=== PATIENT | female | born 1950 | race Caucasian/White ===

== ENCOUNTER 2018-04-30 19:44 | Inpatient (IN) | payer BC, OTHER ==
[2018-04-30] MEDS ORDERED: IBUPROFEN 400 MG TAB ONE (20:55)
[2018-04-30] MEDS ORDERED: IBUPROFEN 200 MG TAB PO ONE (20:56)
[2018-04-30] MEDS ORDERED: NA CHLORIDE 0.9% 500 ML ONE (20:56)
--- NOTE | 2018-04-30 21:16 | RAD REPORT ---
EXAM DESCRIPTION: CT - Stone Protocol - 04/30/2018 8:54 pm CLINICAL HISTORY: Abdominal pain. Urinary tract infection COMPARISON: None. TECHNIQUE: Computed axial tomography of the abdomen pelvis was obtained without oral or IV contrast. Lack of IV and oral contrast limits evaluation of solid organs, bowel, and vessels. Coronal reformat erasto images were obtained and reviewed. All CT scans are performed using dose optimization technique as appropriate and may include automated exposure control or mA/KV adjustment according to patient size. FINDINGS: A renal calculus is not seen. An ureteral calculus is not noted. A bladder calculus is not present. Left perirenal and left periureteral stranding is present The liver, spleen, pancreas and adrenals appear grossly normal There is no evidence of diverticulitis. The appendix appears normal Spondylolysis involves L5 IMPRESSION: Negative for a genitourinary calculus Left perirenal and left periureteral stranding likely indicating inflammation/infection
[2018-04-30 21:38] LABS: Absolute Lymphocytes (CBC) 0.8 K/uL (0.7-4.9); Absolute Monocytes 1.3 K/uL (0.1-1.3); Absolute Neutrophil 9.8 K/uL (1.8-8.0); Basophils % 0.4 % (0-1.3); Eosinophils % 0.1 % (0-4.4); Lymphocytes % 6.8 % (15.3-44.8); MPV 7.6 fL (7.6-11.3); Monocytes % 10.8 % (3.3-12.3); RBC Red Blood Cell Count 3.99 M/uL (3.86-4.86)
[2018-04-30 21:44] LABS: Albumin 3.2 g/dL (3.4-5.0); Bilirubin Direct 0.1 mg/dL (0-0.2); Bilirubin Total 0.4 mg/dL (0.2-1.0); Potassium 3.3 mmol/L (3.5-5.1); Protein, Total 7.1 g/dL (6.4-8.2)
[2018-04-30] MEDS ORDERED: CEFTRIAXONE 1000 MG/VIAL ONE (21:46)
[2018-04-30] MEDS ORDERED: NA CHLORIDE 0.9% 50 ML IV ONE (21:46)
--- NOTE | 2018-04-30 21:57 | ER ---
Nurse's Notes [facility] Name: Genoveva Lomeli Age: 67 yrs Sex: Female : 1950 Arrival Date: 04/30/2018 Time: 19:45 Bed 24 Private MD: Darwin Zaragoza C Diagnosis: Acute pyelonephritis Presentation: 04/30 20:31 Presenting complaint: Patient states: she was diagnosed with a UTI on Saturday and aa1 started running a high fever today so she was told by Dr. Zaragoza that she needed to come to the ED for eval for possible admission. Was started on Bactrim on Saturday and began taking Cipro today. Transition of care: patient was not received from another setting of care. Onset of symptoms was April 26, 2018. Risk Assessment: Do you want to hurt yourself or someone else? Patient reports no desire to harm self or others. Initial Sepsis Screen: Does the patient meet any 2 criteria? HR > 90 bpm. Does the patient have a suspected source of infection? Yes: Dysuria/Frequency/Urgency/UTI. Care prior to arrival: None. 20:31 Method Of Arrival: Ambulatory aa1 20:31 Acuity: CHARLINE 3 aa1 Triage Assessment: 20:35 General: Appears in no apparent distress. comfortable, Behavior is calm, cooperative, aa1 appropriate for age. 20:41 Pain: Complains of pain in on urination. cc3 Historical: - Allergies: 20:35 Tape; aa1 - Home Meds: 20:35 Bactrim DS Oral [Active]; Cipro Oral [Active]; Synthroid Oral [Active]; Amitriptyline aa1 Oral [Active]; Ambien Oral [Active]; Vagifem vaginal vaginal [Active]; - PMHx: 20:35 Hypothyroidism; aa1 - PSHx: 20:35 Hernia repair; Hysterectomy; Bladder suspension; aa1 - Immunization history:: Flu vaccine is not up to date. - Social history:: Smoking status: Patient/guardian denies using tobacco. - Ebola Screening: : Patient denies exposure to infectious person Patient denies travel to an Ebola-affected area in the 21 days before illness onset. - Family history:: not pertinent. - Hospitalizations: : No recent hospitalization is reported. Screenin:41 Abuse screen: Denies threats or abuse. Denies injuries from another. Nutritional cc3 screening: No deficits noted. Tuberculosis screening: No symptoms or risk factors identified. Fall Risk Ambulatory Aid- None/Bed Rest/Nurse Assist (0 pts). Gait- Normal/Bed Rest/Wheelchair (0 pts) Mental Status- Oriented to own ability (0 pts). Assessment: 20:41 General: Appears in no apparent distress. comfortable, Behavior is calm, cooperative, cc3 appropriate for age. Pain: Complains of pain in on urination. Neuro: Level of Consciousness is awake, alert, obeys commands, Oriented to person, place, time, situation, Appropriate for age. Cardiovascular: Denies chest pain. Respiratory: Airway is patent Respiratory effort is even, unlabored, Respiratory pattern is regular, symmetrical. GI: Abdomen is round non-distended. : Reports urinary frequency. EENT: No signs and/or symptoms were reported regarding the EENT system. Derm: No signs and/or symptoms reported regarding the dermatologic system. Musculoskeletal: Circulation, motion, and sensation intact. Range of motion: intact in all extremities. 21:20 Reassessment: Patient appears in no apparent distress at this time. Patient and/or cc3 family updated on plan of care and expected duration. Pain level reassessed. Patient is alert, oriented x 3, equal unlabored respirations, skin warm/dry/pink. 22:50 Reassessment: Patient appears in no apparent distress at this time. Patient and/or cc3 family updated on plan of care and expected duration. Pain level reassessed. Patient is alert, oriented x 3, equal unlabored respirations, skin warm/dry/pink. Patient for admission, room available at 412, report called and handed over to JULIANA Harris for continuity of care. 23:15 Reassessment: Patient appears in no apparent distress at this time. Patient and/or cc3 family updated on plan of care and expected duration. Pain level reassessed. Patient is alert, oriented x 3, equal unlabored respirations, skin warm/dry/pink. Patient left ER for admission vitally stable by wheelchair escorted by calibration laboratory technicianrosa Soria. Vital Signs: 20:35 BP 145 / 78; Pulse 105; Resp 18; Temp 100.7; Pulse Ox 99% on R/A; Weight 73.48 kg; aa1 Height 5 ft. 8 in. (172.72 cm); Pain 0/10; 21:30 BP 143 / 83; Pulse 82; Resp 17 S; Pulse Ox 96% on R/A; cc3 22:50 BP 140 / 75; Pulse 80; Resp 18 S; Temp 98(O); Pulse Ox 96% on R/A; cc3 23:05 BP 127 / 77; Pulse 72; Resp 17 S; Pulse Ox 95% on R/A; cc3 20:35 Body Mass Index 24.63 (73.48 kg, 172.72 cm) aa1 ED Course: 19:45 Patient arrived in ED. es 19:46 Darwin Zaragoza MD is Private Physician. es 20:32 Triage completed. aa1 20:35 Arm band placed on right wrist. Patient placed in an exam room, on a stretcher. aa1 20:38 Haile Luciano MD is Attending Physician. rn 20:41 Soo Ace is Primary Nurse. cc3 20:41 Patient has correct armband on for positive identification. Placed in gown. Bed in low cc3 position. Call light in reach. Side rails up X 1. bus monitor on. Pulse ox on. NIBP on. 20:41 No provider procedures requiring assistance completed. Patient admitted, IV remains in cc3 place. 20:[address] via wheelchair. sj 20:54 CT completed. Patient tolerated procedure well. Patient moved back from CT. nj 20:55 CT Stone Protocol In Process Unspecified. EDMS 20:57 Urine collected: clean catch specimen, clear. lt1 21:10 Inserted saline lock: 20 gauge in left antecubital area, using aseptic technique. Blood cc3 collected. inserted by calibration laboratory technician Estella. 21:13 First set of blood cultures drawn by me. lt1 21:44 Second set of blood cultures drawn by me. lt1 21:57 Darwin Zaragoza MD is Hospitalizing Provider. rn Administered Medications: 20:45 Drug: Motrin 600 mg Route: PO; cc3 21:00 Follow up: Response: No adverse reaction cc3 21:10 Drug: NS 0.9% 500 ml Route: IV; Rate: bolus; Site: left antecubital; cc3 21:35 Follow up: Response: No adverse reaction; IV Status: Completed infusion; IV Intake: cc3 500ml 21:40 Drug: Rocephin - (cefTRIAXone) 1 grams Route: IVPB; Infused Over: 30 mins; Site: left cc3 antecubital; 22:15 Follow up: Response: No adverse reaction; IV Status: Completed infusion; IV Intake: [id number] Intake: 21:35 IV: 500ml; Total: 500ml. cc3 22:15 IV: 50ml; Total: 550ml. cc3 Outcome: 21:57 Decision to Hospitalize by Provider. rn 22:50 Admitted to Tele accompanied by tech, via wheelchair, room 412, with chart, Report cc3 called to JULIANA Harris 22:50 Condition: stable 22:50 Instructed on the need for admit, Demonstrated understanding of instructions. 23:20 Patient left the ED. cc3 Signatures: Dispatcher [employer] Awa Garzon RN RN aa1 James, Brie Leon, Haile Esparza MD MD rn Jordan, Nathan nj Cordel, Charlene cc3 Estella Dunlap [facility]
--- NOTE | 2018-04-30 21:58 | EDPHYS ---
Physician Documentation [facility] Name: Genoveva Lomeli Age: 67 yrs Sex: Female : 1950 Arrival Date: 04/30/2018 Time: 19:45 Bed 24 Private MD: Darwin Zaragoza C ED Physician Haile Luciano HPI: 04/30 21:05 This 67 yrs old Female presents to ER via Ambulatory with complaints of rn Urinary Problem. 21:05 The patient presents with urinary symptoms, dysuria, frequency. rn 21:05 Onset: The symptoms/episode began/occurred 3 day(s) ago. Modifying factors: The rn symptoms are alleviated by nothing, the symptoms are aggravated by nothing. Associated signs and symptoms: Pertinent positives: dysuria, fever, Pertinent negatives: hematuria. Severity of symptoms: At their worst the symptoms were mild, in the emergency department the symptoms are unchanged. The patient has not experienced similar symptoms in the past. The patient has been recently seen by a physician:. REports diagnosed with UTI recently, was on bactrim, now on cipro, still having fever and urinary symptoms. . Historical: - Allergies: 20:35 Tape; aa1 - Home Meds: 20:35 Bactrim DS Oral [Active]; Cipro Oral [Active]; Synthroid Oral [Active]; Amitriptyline aa1 Oral [Active]; Ambien Oral [Active]; Vagifem vaginal vaginal [Active]; - PMHx: 20:35 Hypothyroidism; aa1 - PSHx: 20:35 Hernia repair; Hysterectomy; Bladder suspension; aa1 - Immunization history:: Flu vaccine is not up to date. - Social history:: Smoking status: Patient/guardian denies using tobacco. - Ebola Screening: : Patient denies exposure to infectious person Patient denies travel to an Ebola-affected area in the 21 days before illness onset. - Family history:: not pertinent. - Hospitalizations: : No recent hospitalization is reported. ROS: 21:05 Constitutional: + fever Eyes: Negative for injury, pain, redness, and discharge, ENT: rn Negative for injury, pain, and discharge, Neck: Negative for injury, pain, and swelling, Cardiovascular: Negative for chest pain, palpitations, and edema, Respiratory: Negative for shortness of breath, cough, wheezing, and pleuritic chest pain, Abdomen/GI: Negative for nausea, vomiting, diarrhea, and constipation, MS/Extremity: Negative for injury and deformity, Skin: Negative for injury, rash, and discoloration, Neuro: Negative for headache, numbness, tingling, and seizure. Exam: 21:05 Constitutional: This is a well developed, well nourished patient who is awake, alert, rn and in no acute distress. Head/Face: Normocephalic, atraumatic. Eyes: Pupils equal round and reactive to light, extra-ocular motions intact. Lids and lashes normal. Conjunctiva and sclera are non-icteric and not injected. Cornea within normal limits. Periorbital areas with no swelling, redness, or edema. ENT: MMM Abdomen/GI: soft, non-tender Back: No spinal tenderness. No costovertebral tenderness. Full range of motion. Skin: Warm, dry with normal turgor. Normal color with no rashes, no lesions, and no evidence of cellulitis. MS/ Extremity: Pulses equal, no cyanosis. Neurovascular intact. Full, normal range of motion. Equal circumference. Neuro: Awake and alert, GCS 15, oriented to person, place, time, and situation. Cranial nerves II-XII grossly intact. Motor strength 5/5 in all extremities. Sensory grossly intact. Vital Signs: 20:35 BP 145 / 78; Pulse 105; Resp 18; Temp 100.7; Pulse Ox 99% on R/A; Weight 73.48 kg; aa1 Height 5 ft. 8 in. (172.72 cm); Pain 0/10; 21:30 BP 143 / 83; Pulse 82; Resp 17 S; Pulse Ox 96% on R/A; cc3 22:50 BP 140 / 75; Pulse 80; Resp 18 S; Temp 98(O); Pulse Ox 96% on R/A; cc3 23:05 BP 127 / 77; Pulse 72; Resp 17 S; Pulse Ox 95% on R/A; cc3 20:35 Body Mass Index 24.63 (73.48 kg, 172.72 cm) aa1 MDM: 20:38 Patient medically screened. rn 21:56 Differential diagnosis: urinary tract infection. Data reviewed: vital signs, nurses rn notes, lab test result(s), radiologic studies, CT scan, and as a result, I will admit patient. Counseling: I had a detailed discussion with the patient and/or guardian regarding: the historical points, exam findings, and any diagnostic results supporting the discharge/admit diagnosis, lab results, radiology results, the need for further work-up and treatment in the hospital. Response to treatment: the patient's symptoms have mildly improved after treatment, and as a result, I will admit patient. Admission orders: after a detailed discussion of the patient's condition and case, the admit orders are written by me. 04/30 20:39 Order name: Basic Metabolic Panel; Complete Time: 21:57 rn 04/30 20:39 Order name: CBC with Diff; Complete Time: :57 rn 04/30 20:39 Order name: Hepatic Function; Complete Time: :57 rn 04/30 20:39 Order name: Lipase; Complete Time: :57 rn 04/30 20:39 Order name: Urine Culture rn 04/30 20:39 Order name: Procalcitonin; Complete Time: 22:21 rn 04/30 20:39 Order name: IV Saline Lock; Complete Time: 21:17 rn 04/30 20:39 Order name: Labs collected and sent; Complete Time: 21:17 rn 04/30 20:39 Order name: CT Stone Protocol; Complete Time: 21:28 rn 04/30 20:39 Order name: Blood Culture Adult (2) rn 04/30 20:57 Order name: Urine Dipstick--Ancillary (enter results); Complete Time: 22:21 ct 04/30 20:39 Order name: Urine Dipstick-Ancillary (obtain specimen); Complete Time: 21:17 rn Administered Medications: 20:45 Drug: Motrin 600 mg Route: PO; cc3 21:00 Follow up: Response: No adverse reaction cc3 21:10 Drug: NS 0.9% 500 ml Route: IV; Rate: bolus; Site: left antecubital; cc3 21:35 Follow up: Response: No adverse reaction; IV Status: Completed infusion; IV Intake: cc3 500ml 21:40 Drug: Rocephin - (cefTRIAXone) 1 grams Route: IVPB; Infused Over: 30 mins; Site: left cc3 antecubital; 22:15 Follow up: Response: No adverse reaction; IV Status: Completed infusion; IV Intake: [id number] Disposition: 04/30/18 21:57 Hospitalization ordered by Zaragoza, A for Inpatient Admission. Preliminary diagnosis is Acute pyelonephritis. - Bed requested for Telemetry/MedSurg (Inpatient). - Status is Inpatient Admission. cc3 - Condition is Stable. - Problem is new. - Symptoms have improved. UTI on Admission? Yes Signatures: Dispatcher [employer] EDMS Awa Ohara RN RN aa1 Haile Luciano MD MD rn Garcia, Cindy, RN RN cg Cordel, Charlene cc3 Corrections: (The following items were deleted from the chart) 22:28 21:57 Hospitalization Ordered by A Nik RINCON for Inpatient Admission. Preliminary cg diagnosis is Acute pyelonephritis. Bed requested for Telemetry/MedSurg (Inpatient). Status is Inpatient Admission. Condition is Stable. Problem is new. Symptoms have improved. UTI on Admission? Yes. rn 23:20 22:28 04/30/2018 21:57 Hospitalization Ordered by A Nik RINCON for Inpatient Admission. cc3 Preliminary diagnosis is Acute pyelonephritis. Bed requested for Telemetry/MedSurg (Inpatient). Status is Inpatient Admission. Condition is Stable. Problem is new. Symptoms have improved. UTI on Admission? Yes. sara
[2018-04-30 22:19] LABS: Urine Blood TRACE (NEG); Urine Glucose NEGATIVE (NEG); Urine Protein NEGATIVE (NEG); Urine Specific Gravity <1.005 (1.005-1.030); Urine pH 5.5 (5.0-7.0)
[2018-05-01] MEDS: NA CHLORIDE 0.9% 1,000 ML IV SCH ×4 (00:59→21:12)
[2018-05-01] MEDS ORDERED: NA CHLORIDE 0.9% 1,000 ML ONE (01:13)
[2018-05-01 02:09] VITALS: BMI 24.6
[2018-05-01 04:45] LABS: Absolute Monocytes 1.2 K/uL (0.1-1.3); Basophils % 0.2 % (0-1.3); Eosinophils % 0.5 % (0-4.4); Hematocrit 34.9 % (36.0-45.0); MPV 7.5 fL (7.6-11.3); Monocytes % 9.5 % (3.3-12.3); RBC Red Blood Cell Count 3.99 M/uL (3.86-4.86)
[2018-05-01 04:59] LABS: Potassium 3.3 mmol/L (3.5-5.1)
[2018-05-01] MEDS ORDERED: PNEUMOCOCCAL VACCINE 0.5 ML IMVAC ONE (09:00)
[2018-05-01] MEDS ORDERED: CEFTRIAXONE/SWI 1gm 1 GM/10 ML SYR IV SCH (09:00)
[2018-05-01] MEDS ORDERED: CEFTRIAXONE 1 GM/NS 50 ML 1 GM/50 ML BAG IV SCH ×2 (09:00)
[2018-05-01] MEDS: POTASSIUM CL SA 10 MEQ TAB PO SCH ×2 (10:41→21:12)
[2018-05-01] MEDS: ENOXAPARIN 40 MG/0.4 ML SQ SCH (10:42)
--- NOTE | 2018-05-01 10:50 | RAD REPORT ---
EXAM DESCRIPTION: RAD - Chest Pa And Lat (2 Views) - 05/01/2018 10:31 am CLINICAL HISTORY: Fever COMPARISON: None. TECHNIQUE: PA and lateral views of the chest were obtained. FINDINGS: The lungs are normal volume. No focal consolidation, mass or failure finding. Minimal prom inence of the lung markings noted suspected to be baseline rather than early edema or infiltrate. H eart size is normal and central vasculature is within normal limits. No pleural effusion or pneumoth orax seen. No acute bony finding noted. No aortic abnormality. IMPRESSION: No acute cardiopulmonary process. Mild prominence of the interstitial markings are probably baseline for the patient rather than edema or infiltrate.
[2018-05-01] MEDS ORDERED: CIPROFLOXACIN 400mg IV 400 MG/200 ML BAG IV SCH (15:00)
[2018-05-01] MEDS ORDERED: CEFTAZIDIME 1 GM VIAL IV SCH (15:00)
[2018-05-01] MEDS: ACETAMINOPHEN 500 MG TAB PO PRN ×2 (16:04→22:03)
[2018-05-01] MEDS: CEFTAZIDIME 1 GM in NA CHLORIDE 0.9% 50 ML IV SCH (16:07)
[2018-05-01] MEDS: AMITRIPTYLINE 25 MG TAB PO SCH (21:12)
[2018-05-01] MEDS: ZOLPIDEM TARTRATE 10 MG TABLET PO SCH (23:11)
[2018-05-02] MEDS: CEFTAZIDIME 1 GM in NA CHLORIDE 0.9% 50 ML IV SCH ×3 (00:39→16:43)
[2018-05-02] MEDS: NA CHLORIDE 0.9% 1,000 ML IV SCH ×2 (05:15→10:00)
[2018-05-02] MEDS: ACETAMINOPHEN 500 MG TAB PO PRN ×3 (05:16→20:45)
[2018-05-02] MEDS: CIPROFLOXACIN 400mg IV 400 MG/200 ML BAG IV SCH ×2 (05:16→17:47)
[2018-05-02] MEDS: LEVOTHYROXINE SOD 0.112 MG TAB PO SCH (05:16)
[2018-05-02 06:20] LABS: Absolute Lymphocytes (CBC) 0.9 K/uL (0.7-4.9); Absolute Neutrophil 8.1 K/uL (1.8-8.0); Basophils % 0.5 % (0-1.3); Eosinophils % 0.7 % (0-4.4); Hematocrit 29.8 % (36.0-45.0); Lymphocytes % 8.9 % (15.3-44.8); MPV 7.6 fL (7.6-11.3)
[2018-05-02 06:35] LABS: Magnesium 1.8 mg/dL (1.8-2.4); Potassium 3.7 mmol/L (3.5-5.1)
[2018-05-02] MEDS: ENOXAPARIN 40 MG/0.4 ML SQ SCH (09:00)
[2018-05-02] MEDS: POTASSIUM CL SA 10 MEQ TAB PO SCH ×2 (09:00→20:45)
--- NOTE | 2018-05-02 13:49 | PN ---
Date of Progress Note: 05/02/2018 Subjective: The patient was seen this morning for followup. She is feeling much better. Denies any back pain, abdominal pain, nausea, or vomiting. Objective: Vital Signs: Reviewed. The patient is afebrile this morning, but up until this morning, she continued to have fever. HEENT: Examination unremarkable. Lungs: Clear to auscultation. Heart: Sounds normal. Abdomen: Soft. Bowel sounds normal. No guarding, rigidity, tenderness, or distention. Extremities: No leg edema. Laboratory Data: White count today is 10.1, hemoglobin 10.1, platelets 220. Sodium 139, potassium 3 .7, chloride 108, bicarb 23, BUN 9, creatinine 0.84, glucose 138, magnesium 1.8. Impression: 1.Acute pyelonephritis. 2.Hypokalemia. 3.Anemia. Plan: We will continue current IV antibiotic, which is ceftazidime as well as Cipro. Reduce IV flui d. Continue other current medications including DVT prophylaxis. Ambulation was suggested and I livier l see her tomorrow for followup. Her outpatient urine culture that was done on the day of admission has not grown any particular bacteria, and the blood culture and urine culture from this hospital adm ission is pending. If the patient remains afebrile today, there is a possibility, we might be able to discharge her to go home tomorrow with oral antibiotic, which will b daya Cipro. LARA/MODL Voice ID: [id number] Report ID: [id number]
[2018-05-02] MEDS: AMITRIPTYLINE 25 MG TAB PO SCH ×2 (20:46→22:00)
[2018-05-02] MEDS: ZOLPIDEM TARTRATE 10 MG TABLET PO SCH (23:10)
[2018-05-03] MEDS: CEFTAZIDIME 1 GM in NA CHLORIDE 0.9% 50 ML IV SCH ×3 (00:30→16:57)
--- NOTE | 2018-05-03 01:32 | HP ---
Date of Admission: 05/01/2018 Chief Complaint: Fever and urinary tract infection. History Of Present Illness: This is a 67-year-old pleasant female patient who came in to see me with urinary frequency and burning on urination, on 04/28/2018. After urinalysis was done, she was diagn osed with urinary tract infection and was started on Bactrim DS. The patient was afebrile on that pa rticular day. This was on 04/28/2018. The patient called my office on 04/30/2018, complaining of fe breanna up to 102 degrees Fahrenheit, and she was asked to come see me right away. At that time, the pat tameka reported that she had started fever on 04/29/2018; and on 04/30/2018, it went up to 102. She to ok some Tylenol and Advil type of medication and came in to see me. She denied any complaints of any nausea or vomiting. Her frequency of urination and dysuria had remained unchanged. No abdominal pa in. No flank pain. After she was evaluated at the office, she was determined hemodynamically stable . Blood pressure 156/73. Office temperature was 99.5. Urine culture was sent, and the patient was sent home with instruction to come back for fasting blood work next day and to go ahead and stop the Bactrim and start Cipro 500 mg twice a day. After she left my office later in the evening time, she contacted me and informed me that her temperature had gone up again to 102 degrees Fahrenheit, and sh e was asked to come to emergency room. ER physician was contacted. Details were discussed with him; and after the patient arrived in the ER, further evaluation was done including blood work and CAT sc an, and the patient was admitted to the hospital with pyelonephritis problem. Allergies: NO KNOWN ALLERGIES. Medications: Amitriptyline 25 mg at bedtime, zolpidem 10 mg at bedtime, Boniva 150 mg once a month, Caltrate plus D 1 tablet twice a day, Cipro 500 mg twice a day which was just started yesterday, and levothyroxine 112 mcg p.o. daily. Review of Systems: Genitourinary: As mentioned above. Constitutional: As mentioned above. All other systems reviewed and negative. Past Medical History: Significant for impaired fasting glucose, diverticulosis, hypertension, hyperl ipidemia, hypothyroidism, vitamin B12 deficiency, anemia, osteopenia, and insomnia. Past Surgical History: Hysterectomy, bladder suspension, hernia repair. Family History: Significant for diabetes mellitus, hypertension, and myocardial infarction. Social History: Prior history of smoking, not at present time. Use of alcohol is negative. Physical Examination: Vital Signs: When she came in to emergency room, height 5 feet 8 inches, weight 162 pounds, temperat ure 100.7, pulse 105, respiratory rate 18, blood pressure 145/78, and oxygen saturation 99%. General: Awake, alert, oriented, not in distress. HEENT: Head atraumatic, normocephalic. Conjunctivae nonerythematous. Sclerae white. Mouth, no thr ush or edema noted. Ears/Nose, no mass, lesion, discharge noted. Neck: Supple. No JVD, lymph nodes, bruit, thyromegaly noted. Lungs: Bilateral good equal air entry. Clear to auscultation. No rhonchi. No rales. Heart: Normal heart sounds, no murmur or gallop. Abdomen: Soft, bowel sounds normal. No guarding, rigidity, tenderness, mass, hepatosplenomegaly, dis tention, or bruit noted. Extremities: No leg edema. No calf tenderness. Skin: No rash, ulcer, cellulitis. Lymphatics: No lymph node enlargement in neck, supraclavicular, infraclavicular region. Neuro: No focal neurological deficit. Chest: Unremarkable. External Genitalia: Deferred. Rectal: Deferred. Laboratory Data: White count 12, hemoglobin 11.7, and platelets 248. Sodium 134, potassium 3.3, chl oride 101, bicarb 24, BUN 12, creatinine 0.89, and glucose 156. Liver function tests unremarkable. Procalcitonin 0.09. Urinalysis; trace esterase, trace blood, otherwise negative. CAT scan of abdome n and pelvis per kidney stone protocol done in the emergency room reveals left perirenal and left per iureteral stranding, likely indicating inflammation and infection. Impression: 1.Acute pyelonephritis. 2.Hypokalemia. 3.Anemia. 4.Hypertension. 5.Hyperlipidemia. 6.Hypothyroidism. 7.Impaired fasting glucose. 8.Diverticulosis. 9.Insomnia. Plan: Admit the patient to hospital for further evaluation and management of this problem. The jitendra ent is appropriate for inpatient and is expected to spend 2 midnights in hospital. We will go ahead and follow up on urine culture and blood culture that was done in the emergency room. Urine culture was also done on outpatient basis yesterday. So, we will follow up on that too. Home medications wi ll be continued per order. The patient was started on ceftriaxone 1 g IV piggyback q.12 hours; and d uring the course of day today, the patient had fever again. So, we have decided to discontinue ceftr iaxone. The patient will be started on IV Cipro and IV ceftazidime. I will see her tomorrow for fol lowup. We will repeat blood work tomorrow. IV fluid will be given per order. DVT prophylaxis will be given per order. LARA/CHER Voice ID: [id number]
[2018-05-03] MEDS: LEVOTHYROXINE SOD 0.112 MG TAB PO SCH (05:22)
[2018-05-03] MEDS: CIPROFLOXACIN 400mg IV 400 MG/200 ML BAG IV SCH ×2 (05:22→17:02)
[2018-05-03] MEDS: ENOXAPARIN 40 MG/0.4 ML SQ SCH (08:51)
[2018-05-03] MEDS: POTASSIUM CL SA 10 MEQ TAB PO SCH ×2 (08:51→21:17)
[2018-05-03] MEDS: ACETAMINOPHEN 500 MG TAB PO PRN ×2 (08:57→21:17)
[2018-05-03 09:39] LABS: Absolute Lymphocytes (CBC) 0.9 K/uL (0.7-4.9); Absolute Monocytes 0.8 K/uL (0.1-1.3); Absolute Neutrophil 7.6 K/uL (1.8-8.0); Basophils % 0.5 % (0-1.3); Eosinophils % 2.1 % (0-4.4); Hematocrit 31.3 % (36.0-45.0); Lymphocytes % 9.3 % (15.3-44.8); MPV 7.4 fL (7.6-11.3); Monocytes % 8.8 % (3.3-12.3); RBC Red Blood Cell Count 3.52 M/uL (3.86-4.86)
[2018-05-03 10:03] LABS: Potassium 3.8 mmol/L (3.5-5.1); Thyroid Stimulating Hormone 3.04 uIU/mL (0.360-3.740)
--- NOTE | 2018-05-03 10:50 | PN ---
Date of Progress Note: 05/03/2018 Subjective: The patient was seen this morning for followup, lying in bed, not in distress. Denied a ny complaints of dysuria or urinary frequency. No flank pain or abdominal pain. No nausea, vomiting . The patient started to have temperature spike again last night at 8:45 p.m., her temperature went up to 101.2 and then it started coming down again. Last temperature this morning is 98.4. Denies an y diarrhea. She did have bowel movement yesterday. Objective: Vital Signs: Reviewed. HEENT: Unremarkable. Lungs: Clear to auscultation. Heart: Sounds normal. Abdomen: Soft. Bowel sounds normal. No guarding, rigidity, tenderness, distention. Extremities: No leg edema. Laboratory Data: White count 9.6, hemoglobin 10.4, platelets 226 this morning. Chemistry results fr om this morning pending. Impression: 1.Acute pyelonephritis. 2.Supraventricular tachycardia. 3.Anemia. Plan: The patient had 10 to 12 beats run of supraventricular tachycardia last night. She was asympt omatic and we will follow up on her electrolytes, if it needs to be replaced, we will consider that. Details were discussed with the patient. She had a temperature spike last night, this morning, she is afebrile. Clinically, she is improving with current antibiotic, which is Cipro and ceftazidime. So far, her blood culture and urine culture are negative. Because the patient was already on antibio tics on outpatient basis prior to this admission, there is a good possibility that her culture may no t grow any specific bacteria. In any case, with this empiric antibiotic, she is improving well. Our plan is to continue current antibiotics and she was told that I will consider discharge to go home o n oral antibiotic if she remains afebrile for at least 24 hours. Ambulation was encouraged. I will see her tomorrow for followup. LARA/MODL Voice ID: [id number] Report ID: [id number]
[2018-05-03] MEDS: NA CHLORIDE 0.9% 1,000 ML IV SCH ×2 (16:59→19:20)
[2018-05-03] MEDS: AMITRIPTYLINE 25 MG TAB PO SCH (21:17)
[2018-05-03] MEDS: ZOLPIDEM TARTRATE 10 MG TABLET PO SCH (23:21)
[2018-05-04] MEDS: CEFTAZIDIME 1 GM in NA CHLORIDE 0.9% 50 ML IV SCH ×3 (00:11→17:15)
[2018-05-04] MEDS: CIPROFLOXACIN 400mg IV 400 MG/200 ML BAG IV SCH ×2 (06:03→17:12)
[2018-05-04 06:06] LABS: Absolute Lymphocytes (CBC) 0.9 K/uL (0.7-4.9); Absolute Monocytes 0.7 K/uL (0.1-1.3); Absolute Neutrophil 5.5 K/uL (1.8-8.0); Basophils % 0.8 % (0-1.3); Eosinophils % 4.5 % (0-4.4); Hematocrit 29.2 % (36.0-45.0); Lymphocytes % 12.4 % (15.3-44.8); MPV 7.4 fL (7.6-11.3); RBC Red Blood Cell Count 3.38 M/uL (3.86-4.86)
[2018-05-04] MEDS: LEVOTHYROXINE SOD 0.112 MG TAB PO SCH (06:10)
[2018-05-04 06:18] LABS: Albumin 2.4 g/dL (3.4-5.0); Bilirubin Total 0.3 mg/dL (0.2-1.0); Magnesium 2.1 mg/dL (1.8-2.4); Potassium 4.1 mmol/L (3.5-5.1); Protein, Total 6.2 g/dL (6.4-8.2)
[2018-05-04] MEDS: POTASSIUM CL SA 10 MEQ TAB PO SCH ×2 (08:20→20:49)
[2018-05-04] MEDS: ENOXAPARIN 40 MG/0.4 ML SQ SCH (08:20)
--- NOTE | 2018-05-04 13:54 | PN ---
Date of Progress Note: 05/04/2018 Subjective: The patient was seen this morning for followup. She is feeling much better today. No c omplaints or problems reported. No constipation or diarrhea. No urinary complaints. She is ambulat ing well, has a good appetite. Objective: Vital signs: Reviewed. She has low-grade fever between 99 to 100 degrees Fahrenheit. HEENT: Unremarkable. Lungs: Clear to auscultation. Heart: Sounds normal. Abdomen: Soft. Bowel sounds normal. No guarding, rigidity, tenderness, or distention. Extremities: No leg edema. Laboratory Data: White count 7.5, hemoglobin 10, platelets 244. Sodium 142, potassium 4.1, chloride 109, bicarb 26, BUN 10, creatinine 0.72, glucose 101. SGOT 54, SGPT 89. Lipid profile unremarkable . Impression: 1.Acute pyelonephritis. 2.Anemia. 3.Abnormal liver function test. Plan: We will go ahead and continue current antibiotic as clinically she is responding very well. S he still has low-grade fever, but magnitude of temperature spike is getting better. So far blood cul ture and urine culture have remained negative, and white count has improved. We will continue curren t antibiotics, and I will see her tomorrow for followup. Possible discharge to go home in next 1 or 2 days, and details were discussed with her. Renal ultrasound was ordered to be done today to look for any complications as a result of this pyelonephritis problem. LARA/MODL Voice ID: [id number] Report ID: [id number]
[2018-05-04] MEDS: ZOLPIDEM TARTRATE 10 MG TABLET PO SCH (20:49)
[2018-05-04] MEDS: AMITRIPTYLINE 25 MG TAB PO SCH (20:49)
--- NOTE | 2018-05-04 21:13 | RAD REPORT ---
EXAM DESCRIPTION: US - Renal Ultrasound-Complete - 05/04/2018 8:51 pm CLINICAL HISTORY: acute pyelonephritis COMPARISON: Stone Protocol dated 04/30/2018 FINDINGS: Both kidneys are normal in size, shape and echotexture. The right kidney measures 10.7 x 5.8 x 4.5 cm. No hydronephrosis, focal mass or perinephric fluid. The left kidney measures 11.5 x 6.5 x 5.7 cm. No hydronephrosis, focal mass or perinephric fluid. The urinary bladder is incompletely distended without gross abnormality seen. IMPRESSION: Unremarkable renal sonogram.
[2018-05-05] MEDS: CEFTAZIDIME 1 GM in NA CHLORIDE 0.9% 50 ML IV SCH ×3 (01:15→17:50)
[2018-05-05] MEDS: NA CHLORIDE 0.9% 1,000 ML IV SCH (01:49)
[2018-05-05] MEDS: CIPROFLOXACIN 400mg IV 400 MG/200 ML BAG IV SCH ×2 (05:41→18:14)
[2018-05-05] MEDS: LEVOTHYROXINE SOD 0.112 MG TAB PO SCH (05:41)
[2018-05-05 06:22] LABS: Absolute Lymphocytes (CBC) 1.1 K/uL (0.7-4.9); Absolute Monocytes 0.7 K/uL (0.1-1.3); Absolute Neutrophil 4.5 K/uL (1.8-8.0); Basophils % 1.1 % (0-1.3); Hematocrit 30.7 % (36.0-45.0); Lymphocytes % 16.3 % (15.3-44.8); MPV 7.5 fL (7.6-11.3); Monocytes % 10.1 % (3.3-12.3); RBC Red Blood Cell Count 3.51 M/uL (3.86-4.86)
[2018-05-05 06:39] LABS: Albumin 2.5 g/dL (3.4-5.0); Bilirubin Total 0.3 mg/dL (0.2-1.0); Potassium 4.1 mmol/L (3.5-5.1); Protein, Total 6.5 g/dL (6.4-8.2)
[2018-05-05] MEDS: POTASSIUM CL SA 10 MEQ TAB PO SCH ×2 (08:32→21:28)
[2018-05-05] MEDS: ENOXAPARIN 40 MG/0.4 ML SQ SCH (08:33)
[2018-05-05] MEDS: AMITRIPTYLINE 25 MG TAB PO SCH (21:28)
[2018-05-05] MEDS: ZOLPIDEM TARTRATE 10 MG TABLET PO SCH (22:47)
--- NOTE | 2018-05-06 00:07 | PN ---
Date of Progress Note: 05/05/2018 Subjective: The patient was seen this morning for followup. No new complaints, problems reported by the patient. She feels fine. Objective: VITAL SIGNS: Reviewed. Last temperature this morning 99.1, pulse 73, respiratory rate 18 , blood pressure 146/74. HEENT: Unremarkable. LUNGS: Clear to auscultation. HEART: Sounds normal. ABDOMEN: Soft. Bowel sounds normal. No guarding, rigidity, tenderness, or distention. EXTREMITIES: No leg edema. Laboratory Data: Blood culture, urine culture negative. Renal ultrasound, unremarkable. White coun t 6.7, hemoglobin 10.3 and platelet 265. Hemoglobin A1c 6.2. Sodium 142, potassium 4.1, chloride 10 8, bicarb 28, BUN 10, creatinine 0.72, glucose 114, SGOT 68, SGPT 104. Impression: 1.Acute pyelonephritis. 2.Anemia. 3.Impaired fasting glucose. 4.Abnormal liver function test. Plan: We will go ahead and continue current IV antibiotics. If the patient's temperature remains le ss than 99 degree Fahrenheit today then we will plan to discharge her to go home tomorrow with oral a ntibiotic which will be Cipro. Details were discussed with her. LARA/MODL Voice ID: [id number] Report ID: [id number]
[2018-05-06] MEDS: CEFTAZIDIME 1 GM in NA CHLORIDE 0.9% 50 ML IV SCH ×2 (00:44→09:18)
[2018-05-06] MEDS: CIPROFLOXACIN 400mg IV 400 MG/200 ML BAG IV SCH (04:56)
[2018-05-06] MEDS: LEVOTHYROXINE SOD 0.112 MG TAB PO SCH (04:57)
[2018-05-06] MEDS: POTASSIUM CL SA 10 MEQ TAB PO SCH (08:14)
[2018-05-06] MEDS: ENOXAPARIN 40 MG/0.4 ML SQ SCH (08:14)
[2018-05-06 10:13] VITALS: BP 169/80; TEMP 99.1
[2018-05-06 11:07] VITALS: O2SAT 97
--- NOTE | 2018-05-07 19:27 | DS ---
Date of Discharge: 05/06/2018 Disposition: Discharged to go home. Physical Examination: HEENT: Unremarkable. Lungs: Clear to auscultation. Heart: Sounds normal. Abdomen: Soft. Bowel sounds normal. No guarding, rigidity, tenderness, or distention. Extremities: No leg edema. Laboratory Data: Last chemistry from yesterday sodium 142, potassium 4.1, chloride 108, bicarb 28, BUN 10, creatinine 0.72, glucose 114. Hemoglobin A1c 6.2. SGOT 68, SGPT 104, and alkaline phosphatase 141. White count yesterday was 6.7, hemoglobin 10.3, and platelets 269. Upon admission, white count 12, hemoglobin 11.7, and platelets 248. Hospital Course: A 67-year-old female patient who was admitted to the hospital with urinary tract infection and fever problem. Please see dictated H and P for more information. The patient had bladder infection 2 days prior to this admission, was started on Bactrim and a day after that she started having fever , so she came in to see me. She was advised to change antibiotic from Bactrim to Cipro and we ordered urine culture and some routine labs, but same evening she ended up in the emergency room because her temperature started to spike again. After she came into the ER, she was evaluated and as we were concerned about pyelonephritis, CAT scan of the abdomen per kidney stone protocol showed no evidence of kidney stone, but showed evidence of inflammatory changes around the left ureter and left kidney. There was no hydronephrosis. The patient was admitted to the hospital with acute pyelonephritis. IV fluid and IV antibiotic started. We gave her 2 different IV antibiotics during this hospitalization and the patient kept on having temperature spikes, but over period of this hospitalization with 2 IV antibiotics her temperature spike started to improve. She started feeling better. Her urinary complaints completely resolved. Renal ultrasound was done over the weekend which came back unremarkable. Blood culture remains negative. Urine culture remained negative, so the patient was given empiric antibiotics and today, she is feeling much better and was discharged to go home in stable condition. 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 Erlinda Tang who has done surgery on her in past in terms of bladder suspension and I have advised her to follow up with her for this urinary tract infection problem and if she would prefer for the patient to see a urologist, then she can refer her to urologist that she works with in [facility] and the patient understands that and she will schedule her appointment to see her. Final Diagnoses: 1. Acute pyelonephritis. 2. Hypokalemia. 3. Anemia. 4. Hypertension. 5. Hyperlipidemia. 6. Hypothyroidism. 7. Impaired fasting glucose. 8. Diverticulosis. 9. Insomnia. 10. Abnormal liver function test. Discharge Medications And Instructions: 1. Continue all prior home medication including Cipro as prescribed prior to this admission for 10 days. 2. Do not take any Bactrim. 3. Follow up with my office in 3 weeks and follow up with Dr. Erlinda Tang in 2 to 3 weeks. LARA/MODL Voice ID: [id number] Report ID: [id number] MTDD
== END 2018-05-06 11:56 | disposition home or self-care (01) | DRG 690 ==
LOC: ER 19:44 → ERHOLD 22:09 → 4TH 23:01
PROVIDERS: ADMIT Internal Medicine; ATTEND Internal Medicine
DX: N10 Acute pyelonephritis (principal); I47.1 Supraventricular tachycardia; E87.6 Hypokalemia; D64.9 Anemia, unspecified; I10 Essential (primary) hypertension; E78.5 Hyperlipidemia, unspecified; E03.9 Hypothyroidism, unspecified; R73.01 Impaired fasting glucose; K57.90 Diverticulosis of intestine, part unspecified, without perforation or abscess without bleeding; G47.00 Insomnia, unspecified; R94.5 Abnormal results of liver function studies; E53.8 Deficiency of other specified B group vitamins; M85.80 Other specified disorders of bone density and structure, unspecified site; Z87.891 Personal history of nicotine dependence
CPT/HCPCS: 36415; 71046; 74176; 76377; 76770; 80048; 80053; 80061; 80076; 81003; 82306; 83036; 83605; 83690; 83735; 84145; 84443; 85025; 86803; 87040; 87086; 87088; 96365; 99285; J0696; J0713; J0744; J1650; J7030

== ENCOUNTER 2019-12-02 20:00 | Emergency (ER) | payer OTHER ==
--- OUTSIDE RECORDS SUMMARY | 2019-12-02 20:02 | XMS REPORT | Clinical Summary ---
:1950 Author Organization [facility] Address [address] [place] [id number] Care Team Providers Name Role Phone Jemal Zaragoza MD Primary Care Provider Allergies No Known Allergies Medications No known medications Active Problems Problem Noted Date Hemorrhoids 01/28/2019 Encounters Date Type Specialty Care Team Description 01/22/2019 Office Visit General Surgery Jason Banda Grade I II hemorrhoids MD Marcelo (Primary Dx) after 12/01/2018 Family History Medical History Relation Name Comments Arthritis Mother Hypertension Mother Relation Name Status Comments Mother Social History Tobacco Use Types Packs/Day Years Used Date Never Smoker Smokeless Tobacco: Never Used Alcohol Use Drinks/Week oz/Week Comments Yes 7-10 Sex Assigned at Date Recorded Not on file Job Start Date Occupation Industry Not on file Not on file Not on file Travel History Travel Start Travel End No recent travel history available. Last Filed Vital Signs Vital Sign Reading Time Taken Comments Blood Pressure 159/95 01/22/2019 2:12 PM CDT Pulse 79 01/22/2019 2:12 PM CDT Temperature 36.6 C (97.9 F) 01/22/2019 2:12 PM CDT Respiratory Rate - - Oxygen Saturation - - Inhaled Oxygen Concentration - - Weight 72.6 kg (160 lb) 01/22/2019 2:12 PM CDT Height 172.7 cm (5' 8") 01/22/2019 2:12 PM CDT Body Mass Index 24.33 01/22/2019 2:12 PM CDT Plan of Treatment Health Maintenance Due Date Last Done Comments BREAST CANCER SCREENING 06/17/2001 COLONOSCOPY SCREENING 06/17/2001 SHINGLES VACCINES (#1) 06/17/2001 65+ PNEUMOCOCCAL VACCINE (1 of 2 - PCV13) 06/17/2016 INFLUENZA VACCINE 12/31/2019 Results Not on fileafter 12/01/2018 Advance Directives For more information, please contact: [phone] Type Date Recorded 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
[2019-12-02 21:21] LABS: Absolute Lymphocytes (CBC) 1.4 K/uL (0.7-4.9); Basophils % 1.2 % (0-1.3); Hematocrit 37.4 % (36.0-45.0); Lymphocytes % 25.4 % (15.3-44.8); MPV 7.6 fL (7.6-11.3)
--- NOTE | 2019-12-02 21:21 | RAD REPORT ---
EXAM DESCRIPTION: Johnny Single View12/02/2019 9:03 pm CLINICAL HISTORY: cough COMPARISON: 2018 FINDINGS: The lungs appear clear of acute infiltrate. The heart is normal size IMPRESSION: No acute abnormalities displayed
[2019-12-02 21:38] LABS: ALT/SGPT 24 U/L (12-78); AST/SGOT 16 U/L (15-37); Albumin 3.9 g/dL (3.4-5.0); Alkaline Phosphatase 97 U/L (45-117); BUN Blood Urea Nitrogen 13 mg/dL (7-18); Bicarbonate 29 mmol/L (21-32); Bilirubin Direct 0.1 mg/dL (0-0.2); Bilirubin Total 0.3 mg/dL (0.2-1.0); Glucose Level 117 mg/dL (74-106); Magnesium 2.2 mg/dL (1.8-2.4); NT PRO-BNP 82 pg/mL (<125); Potassium 3.8 mmol/L (3.5-5.1); Protein, Total 7.9 g/dL (6.4-8.2); Sodium Level 139 mmol/L (136-145); Troponin (Emerg Dept Use Only) < 0.02 ng/mL (0.0-0.045)
[2019-12-02] MEDS ORDERED: lisinopriL 10 MG TAB ONE (21:53)
[2019-12-02 22:02] LABS: Urine Blood NEGATIVE (NEG); Urine Glucose NEGATIVE (NEG); Urine Protein NEGATIVE (NEG); Urine Specific Gravity 1.015 (1.005-1.030); Urine pH 7.5 (5.0-7.0)
--- NOTE | 2019-12-02 22:06 | ER ---
Nurse's Notes [facility] Name: Genoveva Lomeli Age: 69 yrs Sex: Female : 1950 Arrival Date: 12/02/2019 Time: 20:01 Bed 3 Private MD: Diagnosis: Essential (primary) hypertension Presentation: 12/01 20:09 Chief complaint: Patient states: Noticed slight dizziness today and pressure in the ll1 ears. Took her BP and it was elevated. Took a BP pill, waited 1 hour, then her BP was still elevated 191/105. Slight chest "indigestion" noticed today. Coronavirus screen: Client denies travel out of the [place] in the last 14 days. At this time, the client does not indicate any symptoms associated with coronavirus-19. Ebola Screen: Patient denies travel to an Ebola-affected area in the 21 days before illness onset. Initial Sepsis Screen: Does the patient meet any 2 criteria? No. Patient's initial sepsis screen is negative. Risk Assessment: Do you want to hurt yourself or someone else? Patient reports no desire to harm self or others. Onset of symptoms was December 02, 2019. 20:09 Method Of Arrival: Ambulatory ll1 20:09 Acuity: CHARLINE 2 ll1 21:24 Initial Sepsis Screen: Does the patient have a suspected source of infection? No. mt2 Patient's initial sepsis screen is negative. Historical: - Allergies: 20:11 Tape; ll1 - Home Meds: 22:07 Ambien Oral [Active]; Synthroid Oral for Hypothyroidism [Active]; Amitriptyline Oral mt2 for Neuropathic Pain [Active]; Coreg 6.25 mg Oral tab 1 tab 2 times per day for Hypertension [Active]; - PMHx: 20:11 Hypothyroidism; Hypertension; ll1 - PSHx: 20:11 Hernia repair; Hysterectomy; Bladder suspension; ll1 - Immunization history:: Flu vaccine is not up to date. - Social history:: Smoking status: Patient denies any tobacco usage or history of. Patient uses alcohol, only on a social basis. Patient/guardian denies using street drugs. Screenin:50 Abuse screen: Denies threats or abuse. Nutritional screening: No deficits noted. mt2 Tuberculosis screening: No symptoms or risk factors identified. Fall Risk None identified. Assessment: 21:22 Reassessment: Patient and/or family updated on plan of care and expected duration. Pain mt2 level reassessed. Patient is alert, oriented x 3, equal unlabored respirations, skin warm/dry/pink. Patient denies pain at this time. General: Appears comfortable, Behavior is cooperative. Pain: Denies pain. Neuro: No deficits noted. Cardiovascular: Reports HTN since TODAY. Respiratory: No deficits noted. GI: No deficits noted. : No deficits noted. EENT: No deficits noted. Derm: No deficits noted. Musculoskeletal: No deficits noted. 22:05 Reassessment: Patient and/or family updated on plan of care and expected duration. Pain mt2 level reassessed. Patient is alert, oriented x 3, equal unlabored respirations, skin warm/dry/pink. Patient denies pain at this time. General: Appears comfortable, Behavior is cooperative. Vital Signs: 20:09 BP 201 / 105; Pulse 88; Resp 18; Pulse Ox 99% ; Weight 74.84 kg; Height 5 ft. 8 in. ll1 (172.72 cm); Pain 0/10; 21:25 BP 166 / 81; Pulse 83; Resp 16; Pulse Ox 97% on R/A; Pain 0/10; mt2 22:05 BP 167 / 95; Pulse 81; Resp 16; Pulse Ox 100% on R/A; Pain 0/10; mt2 22:18 BP 154 / 83; Pulse 82; Resp 16; Temp 98.0(O); Pulse Ox 99% ; Pain 0/10; mt2 20:09 Body Mass Index 25.09 (74.84 kg, 172.72 cm) ll1 ED Course: 20:01 Patient arrived in ED. cl3 20:11 Triage completed. ll1 20:12 Arm band placed on. ll1 20:24 Bernardo Oleary MD is Attending Physician. cristiane 20:28 Taco Maldonado is Primary Nurse. 21:03 XRAY Chest (1 view) In Process Unspecified. EDMS 21:23 Initial lab(s) drawn, by me, sent to lab. Inserted saline lock: 20 gauge in right mt2 antecubital area, using aseptic technique. Blood collected. 21:24 Patient has correct armband on for positive identification. Bed in low position. Call mt2 light in reach. Side rails up X 1. lubricator granulator on. Pulse ox on. NIBP on. 22:05 Jemal Zaragoza MD is Referral Physician. [facility] 22:05 Weston Barrientos MD is Referral Physician. [facility] 22:19 No provider procedures requiring assistance completed. IV discontinued, intact, mt2 bleeding controlled, No redness/swelling at site. Pressure dressing applied. Administered Medications: 21:43 Drug: Lisinopril 10 mg Route: PO; 22:18 Follow up: Response: No adverse reaction; Blood pressure is lowered mt2 22:18 Not Given (pt took home med of coreg. not available in ed pyxis): Coreg 3.125 mg PO mt2 once; administer with food Outcome: 22:05 Discharge ordered by . [facility] 22:19 Discharged to home ambulatory. mt2 22:19 Condition: good 22:19 Discharge instructions given to patient, Instructed on discharge instructions, follow up and referral plans. medication usage, Demonstrated understanding of instructions, follow-up care, medications, Prescriptions given X 2. 22:20 Patient left the ED. mt2 Signatures: Dispatcher [employer] EDWV Bernardo Oleary MD MD cha Habalo, Winsy Lakhwinder Rao cl3 Darrius Rao, RN RN ll1 Delores Rivero RN RN mt2
--- NOTE | 2019-12-02 22:06 | EDPHYS ---
Physician Documentation [facility] Name: Genoveva Lomeli Age: 69 yrs Sex: Female : 1950 Arrival Date: 12/02/2019 Time: 20:01 Bed 3 Private MD: ED Physician Bernardo Oleary HPI: 12/01 21:32 This 69 yrs old Female presents to ER via Ambulatory with complaints of High cristiane Blood Pressure. 21:32 The patient has elevated blood pressure and discovered this at home. Onset: The cristiane symptoms/episode began/occurred just prior to arrival, today. Modifying factors: The symptoms are aggravated by activity, The symptoms are alleviated by remaining still. Associated signs and symptoms: The patient has no apparent associated signs or symptoms. Severity of symptoms: At its worst the blood pressure was mild, in the emergency department the blood pressure is unchanged. The patient has not experienced similar symptoms in the past. Historical: - Allergies: 20:11 Tape; ll1 - Home Meds: 22:07 Ambien Oral [Active]; Synthroid Oral for Hypothyroidism [Active]; Amitriptyline Oral mt2 for Neuropathic Pain [Active]; Coreg 6.25 mg Oral tab 1 tab 2 times per day for Hypertension [Active]; - PMHx: 20:11 Hypothyroidism; Hypertension; ll1 - PSHx: 20:11 Hernia repair; Hysterectomy; Bladder suspension; ll1 - Immunization history:: Flu vaccine is not up to date. - Social history:: Smoking status: Patient denies any tobacco usage or history of. Patient uses alcohol, only on a social basis. Patient/guardian denies using street drugs. ROS: 21:33 Constitutional: Negative for fever, chills, and weight loss, Eyes: Negative for injury, cristiane pain, redness, and discharge, ENT: Negative for injury, pain, and discharge, Neck: Negative for injury, pain, and swelling, Cardiovascular: Negative for chest pain, palpitations, and edema, Respiratory: Negative for shortness of breath, cough, wheezing, and pleuritic chest pain, Abdomen/GI: Negative for abdominal pain, nausea, vomiting, diarrhea, and constipation, Back: Negative for injury and pain, : Negative for injury, bleeding, discharge, and swelling, MS/Extremity: Negative for injury and deformity, Skin: Negative for injury, rash, and discoloration, Neuro: Negative for headache, weakness, numbness, tingling, and seizure, Psych: Negative for depression, anxiety, suicide ideation, homicidal ideation, and hallucinations, Allergy/Immunology: Negative for hives, rash, and allergies, Endocrine: Negative for neck swelling, polydipsia, polyuria, polyphagia, and marked weight changes, Hematologic/Lymphatic: Negative for swollen nodes, abnormal bleeding, and unusual bruising. Exam: 21:33 Constitutional: This is a well developed, well nourished patient who is awake, alert, cristiane and in no acute distress. Head/Face: Normocephalic, atraumatic. Eyes: Pupils equal round and reactive to light, extra-ocular motions intact. Lids and lashes normal. Conjunctiva and sclera are non-icteric and not injected. Cornea within normal limits. Periorbital areas with no swelling, redness, or edema. ENT: Nares patent. No nasal discharge, no septal abnormalities noted. Tympanic membranes are normal and external auditory canals are clear. Oropharynx with no redness, swelling, or masses, exudates, or evidence of obstruction, uvula midline. Mucous membranes moist. Neck: Trachea midline, no thyromegaly or masses palpated, and no cervical lymphadenopathy. Supple, full range of motion without nuchal rigidity, or vertebral point tenderness. No Meningismus. Chest/axilla: Normal chest wall appearance and motion. Nontender with no deformity. No lesions are appreciated. Cardiovascular: Regular rate and rhythm with a normal S1 and S2. No gallops, murmurs, or rubs. Normal PMI, no JVD. No pulse deficits. Respiratory: Lungs have equal breath sounds bilaterally, clear to auscultation and percussion. No rales, rhonchi or wheezes noted. No increased work of breathing, no retractions or nasal flaring. Abdomen/GI: Soft, non-tender, with normal bowel sounds. No distension or tympany. No guarding or rebound. No evidence of tenderness throughout. Back: No spinal tenderness. No costovertebral tenderness. Full range of motion. Skin: Warm, dry with normal turgor. Normal color with no rashes, no lesions, and no evidence of cellulitis. MS/ Extremity: Pulses equal, no cyanosis. Neurovascular intact. Full, normal range of motion. Neuro: Awake and alert, GCS 15, oriented to person, place, time, and situation. Cranial nerves II-XII grossly intact. Motor strength 5/5 in all extremities. Sensory grossly intact. Cerebellar exam normal. Normal gait. Psych: Awake, alert, with orientation to person, place and time. Behavior, mood, and affect are within normal limits. 21:33 Musculoskeletal/extremity: DVT Exam: No signs of deep vein thrombosis. no pain, no swelling, no tenderness, negative Homans' sign noted on exam, no appreciated bluish discoloration, no erythema, no increased warmth. 21:34 ECG was reviewed by the Attending Physician. [facility] Vital Signs: 20:09 BP 201 / 105; Pulse 88; Resp 18; Pulse Ox 99% ; Weight 74.84 kg; Height 5 ft. 8 in. ll1 (172.72 cm); Pain 0/10; 21:25 BP 166 / 81; Pulse 83; Resp 16; Pulse Ox 97% on R/A; Pain 0/10; mt2 22:05 BP 167 / 95; Pulse 81; Resp 16; Pulse Ox 100% on R/A; Pain 0/10; mt2 22:18 BP 154 / 83; Pulse 82; Resp 16; Temp 98.0(O); Pulse Ox 99% ; Pain 0/10; mt2 20:09 Body Mass Index 25.09 (74.84 kg, 172.72 cm) ll1 MDM: 20:25 Patient medically screened. [facility] 21:34 Data reviewed: vital signs, nurses notes, lab test result(s), EKG, radiologic studies, cristiane plain films. 21:35 Differential diagnosis:. Data interpreted: Pulse oximetry: on room air is 97 %. Test cristiane interpretation: by ED physician or midlevel provider: ECG, plain radiologic studies. 21:38 ED course: pt without cp, discussed with patient, will follow dr soto. [facility] 12/01 20:25 Order name: Basic Metabolic Panel; Complete Time: 22:05 [facility] 12/01 20:25 Order name: CBC with Diff; Complete Time: 21:32 [facility] 12/01 20:25 Order name: LFT's; Complete Time: 22:05 [facility] 12/01 20:25 Order name: Magnesium; Complete Time: 22:05 [facility] 12/01 20:25 Order name: NT PRO-BNP; Complete Time: 22:05 [facility] 12/01 20:25 Order name: Troponin (emerg Dept Use Only); Complete Time: 22:05 [facility] 12/01 20:25 Order name: XRAY Chest (1 view); Complete Time: 21:32 [facility] 12/01 20:25 Order name: EKG; Complete Time: 20:26 [facility] 12/01 20:25 Order name: Cardiac monitoring; Complete Time: 21:13 [facility] 12/01 20:25 Order name: EKG - Nurse/Tech; Complete Time: 21:13 [facility] 12/01 20:25 Order name: Urine Culture [facility] 12/01 21:14 Order name: Urine Dipstick--Ancillary (enter results); Complete Time: 22:05 mw2 12/01 20:25 Order name: IV Saline Lock; Complete Time: 21:13 [facility] 12/01 20:25 Order name: Labs collected and sent; Complete Time: 21:13 [facility] 12/01 20:25 Order name: O2 Per Protocol; Complete Time: 21:13 [facility] 12/01 20:25 Order name: O2 Sat Monitoring; Complete Time: 21:13 [facility] 12/01 20:25 Order name: Urine Dipstick-Ancillary (obtain specimen); Complete Time: 21:23 [facility] EC:34 Rate is 76 beats/min. Rhythm is regular. QRS [place] is Normal. [place] interval is normal. QRS cristiane interval is normal. QT interval is normal. No Q waves. T waves are Normal. No ST changes noted. Clinical impression: Normal ECG and No evidence of ischemia. Interpreted by me. Reviewed by me. Administered Medications: 21:43 Drug: Lisinopril 10 mg Route: PO; 22:18 Follow up: Response: No adverse reaction; Blood pressure is lowered mt2 22:18 Not Given (pt took home med of coreg. not available in ed pyxis): Coreg 3.125 mg PO mt2 once; administer with food Disposition: 12/02/19 22:05 Discharged to Home. Impression: Essential (primary) hypertension. - Condition is Stable. - Discharge Instructions: Hypertension, Hypertension, Oncf-tc-Emam, How to Take Your Blood Pressure, Jeap-hb-Erza, Managing Your Hypertension. - Prescriptions for Coreg 3.125 mg Oral Tablet - take 1 tablet by ORAL route every 12 hours with food; 30 tablet. Lisinopril 5 mg Oral Tablet - take 1 tablet by ORAL route once daily; 20 tablet. - Medication Reconciliation Form, Thank You Letter, Antibiotic Education, Prescription Opioid Use form. - Follow up: Jemal Soto; When: 2 - 3 days; Reason: Recheck today's complaints, Continuance of care, Re-evaluation by your physician. Follow up: Weston Barrientos; When: 2 - 3 days; Reason: Recheck today's complaints, Continuance of care, Re-evaluation by your physician. - Problem is new. - Symptoms have improved. Signatures: Dispatcher [employer] EDMS Bernardo Oleary MD MD cha Habalo, Darrius Duenas RN RN ll1 Delores Rivero RN RN mt2 Corrections: (The following items were deleted from the chart) 22:20 22:05 12/02/2019 22:05 Discharged to Home. Impression: Essential (primary) mt2 hypertension. Condition is Stable. Discharge Instructions: Hypertension, Hypertension, Vuul-ht-Bqie, How to Take Your Blood Pressure, Xsmf-me-Igcf, Managing Your Hypertension. Prescriptions for Coreg 3.125 mg Oral Tablet - take 1 tablet by ORAL route every 12 hours with food; 30 tablet, Lisinopril 5 mg Oral Tablet - take 1 tablet by ORAL route once daily; 20 tablet. and Forms are Medication Reconciliation Form, Thank You Letter, Antibiotic Education, Prescription Opioid Use. Follow up: Jemal Soto; When: 2 - 3 days; Reason: Recheck today's complaints, Continuance of care, Re-evaluation by your physician. Follow up: Weston Barrientos; When: 2 - 3 days; Reason: Recheck today's complaints, Continuance of care, Re-evaluation by your physician. Problem is new. Symptoms have improved. cristiane
--- NOTE | 2019-12-04 11:15 | EKG ---
Test Date: 2019-12-02 Test Time: 21:02:10 Dealer Card Room: [facility] MEASUREMENT RESULTS: Intervals: Rate: 76 MA: 176 QRSD: 98 QT: 376 QTc: 423 [place]: P: 39 MA: 176 QRS: 5 T: 30 INTERPRETIVE STATEMENTS: Normal sinus rhythm Incomplete right bundle branch block Borderline ECG No previous ECG available for comparison Electronically Signed On 12-04-19 11:10:40 CDT by Weston Barrientos
[2019-12-04 23:31] VITALS: BP 154/83; TEMP 98; O2SAT 99
== END 2019-12-02 22:20 | disposition home or self-care (01) ==
LOC: ER 20:00
DX: I10 Essential (primary) hypertension (principal); E03.9 Hypothyroidism, unspecified
CPT/HCPCS: 36415; 71045; 80048; 80076; 81003; 83735; 83880; 84484; 85025; 87086; 87088; 93005; 99284